=== PATIENT | female | born 1980 | race Caucasian/White ===

== ENCOUNTER 2020-11-17 10:25 | Outpatient (REF) | payer MEDICAID, SELFPAY ==
[2020-11-17 14:00] LABS: MANUAL DIFF FLAG SCAN; Monocytes Absolute Auto 0.6 X10*3/uL (0.1-1.2); SCAN SMEAR FLAG 1
[2020-11-17 14:02] LABS: Basophils Absolute Auto 0.1 X10*3/uL (0.0-0.2); Basophils Percent Auto 0.8 % (0-2); Eosinophils Absolute Auto 0.3 X10*3/uL (0.0-0.4); Eosinophils Percent Auto 5.4 % (0-4); Hemoglobin 12.7 g/dl (12.0-16.0); Imm Gran Abs Auto 0.02 X10*3/uL (0.00-0.03); Imm Gran Pct Auto 0.3 % (0.0-0.4); Lymphocytes Absolute Auto 1.7 X10*3/uL (1.2-4.9); Mean Corpuscular HGB Conc 34.3 g/dl (31.0-35.0); Mean Corpuscular Hemoglobin 30.7 pg (27.0-33.0); Mean Corpuscular Volume 89.4 fL (80-98); Mean Platelet Volume 12.9 fL (9.4-12.3); Monocytes Percent Auto 9.1 % (2-11); Neutrophils Absolute Auto 3.5 X10*3/uL (2.0-8.3); Neutrophils Percent Auto 56.4 % (45-73); Platelet Count 198 X10*3/uL (160-400); Red Blood Count 4.14 X10*6/uL (4.20-5.50); Red Cell Distribution Width 11.6 % (11.0-16.0); White Blood Count 6.2 X10*3/uL (4.8-10.8)
[2020-11-17 14:05] LABS: PLT ABN DIST 1
[2020-11-17 14:09] LABS: SLIDE REVIEW VERIFIED
[2020-11-17 14:23] LABS: Alanine Aminotransferase 15 U/L (0-31); Albumin Level 4.2 g/dL (3.5-5.0); Alkaline Phosphatase 76 U/L (39-117); Anion Gap 14 (12-20); Aspartate Amino Transferase 17 U/L (5-31); Blood Urea Nitrogen 11 mg/dL (9-16); Calcium 8.5 mg/dL (8.4-10.2); Carbon Dioxide 27 mmol/L (22-29); Chloride 104 mmol/L (96-108); Cholesterol 170 mg/dL; Estimated Glomerular Filt Rate > 60; Glucose Fasting 103 mg/dL (60-99); HDL Cholesterol 43 mg/dL; LDL Cholesterol Calculated 89 mg/dl; Potassium 3.7 mmol/L (3.3-5.1); Sodium 141 mmol/L (135-145); Total Protein 6.8 g/dL (6.5-8.0); Triglycerides 191 mg/dL
[2020-11-18 08:30] LABS: HIV AB/AG Nonreactive (Nonreactive)
== END 2020-11-17 10:26 | disposition home or self-care (01) ==
LOC: HO.10HDL 10:25
PROVIDERS: Visit Provider Internal Medicine
DX: Z00.00 Encounter for general adult medical examination without abnormal findings (principal); Z11.4 Encounter for screening for human immunodeficiency virus [HIV]; Z12.4 Encounter for screening for malignant neoplasm of cervix; Z11.51 Encounter for screening for human papillomavirus (HPV); F31.81 Bipolar II disorder
CPT/HCPCS: 36415; 80053; 80061; 85025; 87389

== ENCOUNTER 2021-08-05 16:10 | Outpatient (REF) | payer MEDICAID, SELFPAY ==
--- NOTE | ~2021-08-05 | XR_ITS ---
EXAMINATION: XR KNEE, RIGHT CLINICAL INFORMATION: Right knee pain COMPARISON: None TECHNIQUE: Four views of the right knee. FINDINGS: No fracture or subluxation. Compartmental joint spaces are maintained. No joint effusion. The soft tissues are unremarkable. XR/XR knee RT 4V IMPRESSION: Normal right knee.
== END 2021-08-05 16:11 | disposition home or self-care (01) ==
LOC: HO.LAB 16:10
PROVIDERS: Visit Provider Internal Medicine
DX: M17.11 Unilateral primary osteoarthritis, right knee (principal)
CPT/HCPCS: 73564

== ENCOUNTER 2021-12-01 13:16 | Outpatient (REF) | payer MEDICAID, SELFPAY ==
[2021-12-01 13:27] LABS: MANUAL DIFF FLAG NO
[2021-12-01 14:26] LABS: Basophils Absolute Auto 0.1 X10*3/uL (0.0-0.2); Basophils Percent Auto 0.6 % (0-2); Eosinophils Absolute Auto 0.3 X10*3/uL (0.0-0.4); Eosinophils Percent Auto 3.2 % (0-4); Hemoglobin 13.9 g/dl (12.0-16.0); Imm Gran Abs Auto 0.02 X10*3/uL (0.00-0.03); Imm Gran Pct Auto 0.2 % (0.0-0.4); Lymphocytes Absolute Auto 2.2 X10*3/uL (1.2-4.9); Lymphocytes Percent Auto 27.1 % (20-40); Mean Corpuscular HGB Conc 33.9 g/dl (31.0-35.0); Mean Corpuscular Hemoglobin 30.2 pg (27.0-33.0); Mean Corpuscular Volume 89.1 fL (80.0-98.0); Mean Platelet Volume 12.5 fL (9.4-12.3); Monocytes Absolute Auto 0.7 X10*3/uL (0.1-1.2); Monocytes Percent Auto 9.1 % (2-11); Neutrophils Absolute Auto 4.8 x10*3/uL (2.0-8.3); Neutrophils Percent Auto 59.8 % (45-73); Platelet Count 219 X10*3/uL (160-400); Red Cell Distribution Width 11.6 % (11.0-16.0)
[2021-12-01 14:56] LABS: Alanine Aminotransferase 23 U/L (0-31); Albumin Level 4.4 g/dL (3.5-5.0); Alkaline Phosphatase 102 U/L (39-117); Anion Gap 15 (12-20); Aspartate Amino Transferase 23 U/L (5-31); Bilirubin Total 0.4 mg/dL (0.0-1.0); Blood Urea Nitrogen 10 mg/dL (9-16); Calcium 8.9 mg/dL (8.4-10.2); Carbon Dioxide 27 mmol/L (22-29); Chloride 104 mmol/L (96-108); Cholesterol 199 mg/dL; Estimated Glomerular Filt Rate > 60; Glucose Random 104 mg/dL (60-115); HDL Cholesterol 38 mg/dL; LDL Cholesterol Calculated 114 mg/dl; Potassium 3.9 mmol/L (3.3-5.1); Sodium 142 mmol/L (135-145); Total Protein 7.5 g/dL (6.5-8.0); Triglycerides 239 mg/dL
[2021-12-01 15:16] LABS: Thyroid Stimulating Hormone 1.51 uIU/mL (0.32-4.0)
== END 2021-12-01 13:17 | disposition home or self-care (01) ==
LOC: HO.LAB 13:16
PROVIDERS: PCP Internal Medicine; Visit Provider Internal Medicine
DX: Z00.00 Encounter for general adult medical examination without abnormal findings (principal); F32.9 Major depressive disorder, single episode, unspecified; Z86.001 Personal history of in-situ neoplasm of cervix uteri; Z12.4 Encounter for screening for malignant neoplasm of cervix
CPT/HCPCS: 36415; 80053; 80061; 84443; 85025

== ENCOUNTER 2021-12-09 11:45 | Outpatient (REF) | payer MEDICAID, SELFPAY ==
[2021-12-09 13:43] LABS: Alanine Aminotransferase 33 U/L (0-31); Albumin Level 4.2 g/dL (3.5-5.0); Alkaline Phosphatase 93 U/L (39-117); Aspartate Amino Transferase 28 U/L (5-31); Bilirubin Direct 0.2 mg/dL (0.0-0.5); Bilirubin Total 0.5 mg/dL (0.0-1.0); C Reactive Protein 0.23 mg/dL (< or = 0.50); Iron 120 mcg/dL (30-160); Percent Iron Saturation 34 % (15-50); Total Iron Binding Capacity 349 mcg/dL (228-428); Total Protein 7.2 g/dL (6.5-8.0); Unsaturated Iron Binding 229 ug/dL
[2021-12-09 13:53] LABS: TSH reflex Free T4 0.77 uIU/mL (0.32-4.0); Vitamin D 25-OH Total 20.5 ng/mL (>30)
[2021-12-09 14:20] LABS: Folate 9.8 ng/mL (> or = 4.0); Vitamin B12 339 pg/mL (200-900)
[2021-12-11 20:27] LABS: Immunoglobulin A 453 mg/dL (47-310)
[2021-12-13 21:56] LABS: Transglutaminase IgA <1.0 U/mL
== END 2021-12-09 11:46 | disposition home or self-care (01) ==
LOC: HO.LAB 11:45
PROVIDERS: PCP Internal Medicine; Visit Provider Internal Medicine
DX: R63.4 Abnormal weight loss (principal); R15.2 Fecal urgency; R19.8 Other specified symptoms and signs involving the digestive system and abdomen; K52.9 Noninfective gastroenteritis and colitis, unspecified; R12 Heartburn
CPT/HCPCS: 36415; 80076; 82306; 82607; 82746; 82784; 83540; 83993; 84443; 86140; 86364; 87338; 87507; 99202

== ENCOUNTER 2021-12-09 17:25 | Outpatient (REF) | payer MEDICAID, SELFPAY ==
[2021-12-10 11:45] LABS: Adenovirus F 40/41 Not Detected (Not Detect.); Astrovirus Not Detected (Not Detect.); Campylobacter Not Detected (Not Detect.); Cryptosporidium Not Detected (Not Detect.); Cyclospora cayetanensis Not Detected (Not Detect.); E. coli EAEC Not Detected (Not Detect.); E. coli EPEC Not Detected (Not Detect.); E. coli ETEC Not Detected (Not Detect.); E. coli STEC Not Detected (Not Detect.); Entamoeba histolytica Not Detected (Not Detect.); Giardia lamblia Not Detected (Not Detect.); Norovirus GI/GII Not Detected (Not Detect.); Plesiomonas shigelloides Not Detected (Not Detect.); Rotavirus A Not Detected (Not Detect.); Salmonella Not Detected (Not Detect.); Shigella sp./EIEC Not Detected (Not Detect.); Vibrio Not Detected (Not Detect.); Vibrio Cholerae Not Detected (Not Detect.); Yersinia enterocolitica Not Detected (Not Detect.)
[2021-12-10 11:46] LABS: Sapovirus Not Detected (Not Detect.)
[2021-12-17 21:12] LABS: Calprotectin, Fecal 17 mcg/g
== END 2021-12-09 17:26 | disposition home or self-care (01) ==
LOC: HO.LNP 17:25
PROVIDERS: Visit Provider Internal Medicine
DX: K52.9 Noninfective gastroenteritis and colitis, unspecified (principal)
CPT/HCPCS: 83993; 87338; 87507

== ENCOUNTER → 2022-01-19 09:47 | Outpatient (BNVA) | payer MEDICAID, SELFPAY | PROVIDERS: PCP Internal Medicine; Visit Provider Internal Medicine | DX: K52.9 Noninfective gastroenteritis and colitis, unspecified (principal); K21.9 Gastro-esophageal reflux disease without esophagitis; R12 Heartburn | CPT/HCPCS: 99212 ==

== ENCOUNTER 2022-02-10 10:05 | Day surgery (SDC) | payer MEDICAID, SELFPAY ==
[2022-02-04 13:05] VITALS: BMI 27.6
--- NOTE | 2022-02-09 10:51 | HO.ANESPROP2 ---
Documented by User: Karissa Gallegos NP 02/09/22 10:51 HPI - Anesthesia Eval Consult details Narrative: 41yo F for Upper Endoscopy and Colonoscopy PMFSH Active Problems Active Problems: All Active Problems (Updated 01/19/22 @ 10:14 by Emily Choudhury MD) Acid reflux (Acute) Tenesmus (rectal) (Acute) Fecal urgency (Acute) Weight loss (Acute) Chronic heartburn (Acute) Chronic diarrhea (Acute) Past Medical History Medical History Acid reflux Anemia Asthma Surgical History Surgical History Hx of abdominal surgery Hx of esophagogastroduodenoscopy Social History Social History Household Members: Family Alcohol intake: current Patient Tobacco Use Status: Never used Tobacco Use of substances other than those prescribed or required for medical reasons: No Are you DNR?: No Advance Directives: No Advance Directives Information Provided: Yes Meds Allergies Allergy/AdvReac Type Severity Reaction Status Date / Time No Known Allergies Allergy Verified 02/10/22 11:00 antibiotic not sure of name Allergy Unknown Unknown Uncoded 02/10/22 11:00 Home Medications Medication Instructions Recorded Confirmed Last Taken Type Advair Diskus inhalation BID PRN Shortness Of 02/10/22 Unknown History Breath Or Wheezing albuterol sulfate 90 mcg/actuation 2 puff inhalation Q4-6H PRN 02/10/22 02/10/22 Unknown History aerosol inhaler (ProAir HFA) Shortness Of Breath Or Wheezing esomeprazole magnesium 20 mg 1 tab PO DAILY 02/10/22 02/10/22 Unknown History capsule,delayed release Exam Exam Date and Time: February 09, 2022 1051 Height,Weight and Vital Signs: Height 5 ft 5 in Weight 75.296 kg Assessment and Plan Assessment Anesthesia Assessment: Chart Reviewed Documented by User: Deandra Macias MD 02/10/22 11:15 [facility] Past Medical History Medical History Acid reflux Anemia Asthma Functional capacity: independent ambulation Patient : No Family History Family history of problems with anesthesia: No Surgical History Surgical History Hx of abdominal surgery Hx of esophagogastroduodenoscopy History of Problems with Anesthesia: No Social History Social History Household Members: Family Alcohol intake: current Patient Tobacco Use Status: Never used Tobacco Use of substances other than those prescribed or required for medical reasons: No Are you DNR?: No Advance Directives: No Advance Directives Information Provided: Yes Meds Allergies Allergy/AdvReac Type Severity Reaction Status Date / Time No Known Allergies Allergy Verified 02/10/22 11:00 antibiotic not sure of name Allergy Unknown Unknown Uncoded 02/10/22 11:00 Home Medications Medication Instructions Recorded Confirmed Last Taken Type Advair Diskus inhalation BID PRN Shortness Of 02/10/22 Unknown History Breath Or Wheezing albuterol sulfate 90 mcg/actuation 2 puff inhalation Q4-6H PRN 02/10/22 02/10/22 Unknown History aerosol inhaler (ProAir HFA) Shortness Of Breath Or Wheezing esomeprazole magnesium 20 mg 1 tab PO DAILY 02/10/22 02/10/22 Unknown History capsule,delayed release Exam Airway Mallampati Class: II TM Dist: >3cm Neck ROM: Full Heart: RRR Lungs: CTA Assessment and Plan Final Anesthetic Review Family History of Problems with Anesthesia: No History of Problems with Anesthesia: No ASA Class: II Final Preanesthetic Review: No Changes in Pt Med Stat, Meds/Allgs Chart Reviewed, Consent Obtained/Reviewed and Anes Risks/Benef Reviewed Patient Risk: Low Procedure Risk: Low Anesthetic Plan Anesthetic Plan: MAC: Disposition: Standard PACU
[2022-02-10 10:40] VITALS: BP 133/81; PULSE 101; RESP 15; TEMP 36.3; O2SAT 98
[2022-02-10 10:48] LABS: UPreg QC Valid YES; Urine Pregnancy NEGATIVE (NEGATIVE)
[2022-02-10] MEDS: Lactated Ringers 1,000 ML 100 ML IVCONT (11:00)
--- NOTE | 2022-02-10 11:25 | MHC.SHP ---
Pre-Procedural Eval Section A Date of Service: 02/10/22 The History & Physical has been completed within 30 days and I have reviewed it.: Yes Section B Chief Complaint: Hx of UC, chronic diarrhea, nausea Allergies: Allergies Allergy/AdvReac Type Severity Reaction Status Date / Time No Known Allergies Allergy Verified 02/10/22 11:00 antibiotic not sure of name Allergy Unknown Unknown Uncoded 02/10/22 11:00 Plan Diagnosis/Plan: Unchanged I have reviewed the history and physical and performed a pertinent physical examination on my patient. No changes have occurred unless specified. Time Spent With Patient Time: Total time managing care of this patient today ____ minutes.
--- NOTE | 2022-02-10 11:32 | P.OP_ITS ---
Operative Note Operative Note Date of Service: 02/10/22 Narrative: Procedure: Esophagogastroduodenoscopy and ileocolonoscopy Endoscopist: Emily Choudhury MD Indication: ? UC, chronic diarrhea, GERD Anesthesia Provider: Radha Tan CRNA Anesthesia Type: MAC Instrument: Olympus GIF-H190 and PCF-190 ?? EGD Procedure:?? The procedure, indications, preparation and potential complications were reviewed with the patient, who indicated understanding and gave written informed consent to proceed. A physical exam was performed. The endoscope was introduced through the mouth, and advanced to the second part of duodenum. The mucosa was carefully examined on slow withdrawal of the endoscope. The patient tolerated the procedure well. There were no immediate complications.? ? EGD Findings:? * Esophagus:? The Z line was at 35 cm. A bilobed nodule of size 15 mm with overlying villous mucosal changes was noted at the GE junction. Cold forceps biopsies were taken from the nodule. * Stomach:? Small erosions were noted in the stomach. Random cold forceps gastric biopsies were taken to rule out H Pylori infection. * Duodenum:? Normal mucosa was noted in the whole of the examined duodenum. Cold forceps biopsies were taken from duodenal bulb and second portion of the duodenum to rule out celiac sprue. Colonoscopy Procedure: The patient was then turned for the colonoscopy. A digital rectal exam was performed which was normal. The colonoscope was then inserted through the anus and advanced through the colon to the cecum at 80 cm,and terminal ileum. Appendiceal orifice and ileocecal valve were identified. Mucosa was carefully examined under high definition white light as the instrument was slowly withdrawn in a retrograde panoramic fashion. Retroflexion was performed in rectum. The procedure was not difficult. There were no immediate obvious complications. The quality of the prep was BBPS: 3+2+3 = adequate Withdrawal time 23 minutes. Limitations: No limitations. Colonoscopy Findings: Mucosa: * Small scattered scars were noted in the distal rectum ? from previous biopsy. Otherwise mucosa was normal to cecum and terminal ileum. Cold forceps biopsies were obtained from cecum, ascending colon, transverse colon, descending colon, sigmoid colon and rectum. Protruding lesions: * 1 pedunculated polyp of size 8 mm in cecum. Hot snare polypectomy was performed. The polyp was completely removed and retrieved. * Medium internal hemorrhoids without stigmata of recent bleeding. Excavated lesions: * Few small mouthed diverticula noted in ascending colon. Impressions:? * GEJ nodule (biopsy) * Gastritis (biopsy) * Normal duodenum (biopsy) * Normal colon and terminal ileum mucosa. (Biopsy) * Total of 1 polyp removed from cecum * Mild diverticulosis * Internal hemorrhoids Recommendations:?? * Follow biopsy results. Our office will call or send a letter with results within 7-10 days. * Start/continue PPI therapy. * Depending on path from esophageal nodule, may need EMR. * If H pylori +, patient will be prescribed eradication therapy followed by test of cure. * Avoid NSAIDs. * Repeat colonoscopy contingent on path results. Above has been reviewed with the patient. Relevant educational hand outs were provided at discharge.
[2022-02-10 12:48] VITALS: BP 117/86; PULSE 84; RESP 16; TEMP 36.1; O2SAT 99
[2022-02-10 13:03] VITALS: BP 123/88; PULSE 91; RESP 18; O2SAT 99
[2022-02-10] MEDS: Ondansetron ODT 4 MG TAB.RAPDIS TRANSLINGU (13:07)
[2022-02-10 13:18] VITALS: BP 128/89; PULSE 70; RESP 16; TEMP 36.1; O2SAT 100
[2022-02-10 13:33] VITALS: BP 147/48; PULSE 70; RESP 16; TEMP 36.1; O2SAT 100
[2022-02-10 13:48] VITALS: BP 125/83; PULSE 78; RESP 12; TEMP 36.2; O2SAT 99
== END 2022-02-10 14:53 | disposition home or self-care (01) ==
PROVIDERS: Nurse Practitioner; PCP Internal Medicine; Visit Provider Internal Medicine
PROC: (CPT 45385; principal; 2022-02-10 12:10)
DX: K52.9 Noninfective gastroenteritis and colitis, unspecified (principal); D12.2 Benign neoplasm of ascending colon; K57.30 Diverticulosis of large intestine without perforation or abscess without bleeding; K64.8 Other hemorrhoids; K29.50 Unspecified chronic gastritis without bleeding; K21.9 Gastro-esophageal reflux disease without esophagitis; D13.0 Benign neoplasm of esophagus; Z87.19 Personal history of other diseases of the digestive system; Z79.899 Other long term (current) drug therapy
CPT/HCPCS: 45385; 45380; 43239; 81025; 88305; 88342; J2370

== ENCOUNTER → 2022-02-23 09:50 | Outpatient (BNVA) | payer MEDICAID, SELFPAY | PROVIDERS: PCP Internal Medicine; Referring Provider Internal Medicine; Visit Provider Internal Medicine | DX: K52.9 Noninfective gastroenteritis and colitis, unspecified (principal); D36.9 Benign neoplasm, unspecified site; R12 Heartburn | CPT/HCPCS: 99212 ==

== ENCOUNTER 2022-04-07 09:27 | Outpatient (REF) | payer MEDICAID, SELFPAY ==
--- NOTE | ~2022-04-07 | FL_ITS ---
EXAMINATION: FL BARIUM SWALLOW CLINICAL INFORMATION: K21.9 - Gastro-esophageal reflux disease without esophagitis COMPARISON: Upper GI series 09/24/2012 TECHNIQUE: Barium swallow examination is performed on 04/07/[address] Perales. Radiologist is away and unable to provide report. Submitted images are reviewed. Addendum requested for any additional fluoroscopic evaluation findings. The patient is imaged both upright and prone and using both thick and thin barium sulfate along with effervescent granules. Fluoroscopy time: 1.2 minutes DAP: 8.677 Gycm2 Images: 52 FINDINGS: There is no aspiration. The cervical esophagus shows no web or diverticulum or stricture. The cervical thoracic junction appears normal. The thoracic esophagus shows no obstruction, stricture, or ulceration. There is no obvious hiatal hernia or reflux seen. A cursory view of the upper abdomen shows no gastric outlet obstruction. FL/FL barium swallow IMPRESSION: -Review of the barium swallow images demonstrates no focal abnormality. -Addendum request submitted for the performing radiologist for any additional fluoroscopic evaluation findings.
== END 2022-04-07 09:28 | disposition home or self-care (01) ==
LOC: HO.XRAY 09:27
PROVIDERS: Visit Provider Internal Medicine
DX: K21.9 Gastro-esophageal reflux disease without esophagitis (principal)
CPT/HCPCS: 74220

== ENCOUNTER 2022-04-28 07:41 | Day surgery (SDC) | payer MEDICAID, SELFPAY ==
--- NOTE | 2022-04-27 11:58 | HO.ANESPROP2 ---
Documented by User: Karissa Gallegos NP 04/27/22 11:59 HPI - Anesthesia Eval Consult details Narrative: 41yo F for Upper Endoscopy PMFSH Active Problems Active Problems: All Active Problems (Updated 02/23/22 @ 12:08 by Emily Choudhury MD) Tubulovillous adenoma (Acute) Chronic diarrhea (Acute) Chronic heartburn (Acute) Weight loss (Acute) Fecal urgency (Acute) Tenesmus (rectal) (Acute) Acid reflux (Acute) Past Medical History Medical History Acid reflux Anemia Asthma Tubal ligation evaluation Family History Family history of problems with anesthesia: No Surgical History Surgical History H/O colonoscopy Hx of abdominal surgery Hx of esophagogastroduodenoscopy History of Problems with Anesthesia: No Social History Social History Household Members: Family Alcohol intake: current Alcohol intake frequency: a few times a month Patient Tobacco Use Status: Never used Tobacco Use of substances other than those prescribed or required for medical reasons: No Are you DNR?: No Advance Directives: No Advance Directives Information Provided: Yes Meds Allergies Allergy/AdvReac Type Severity Reaction Status Date / Time No Known Allergies Allergy Verified 02/23/22 10:05 antibiotic not sure of name Allergy Intermediate Rash Uncoded 04/28/22 07:48 Home Medications Medication Instructions Recorded Confirmed Last Taken Type Advair Diskus 1 puff inhalation BID PRN 02/10/22 04/28/22 Unknown History Shortness Of Breath Or Wheezing albuterol sulfate 90 mcg/actuation 2 puff inhalation Q4-6H PRN 02/10/22 04/28/22 Unknown History aerosol inhaler (ProAir HFA) Shortness Of Breath Or Wheezing propranolol 60 mg capsule,24 60 mg PO DAILY 02/23/22 04/28/22 04/27/22 History hr,extended release sertraline 50 mg tablet 50 mg PO QAM 02/23/22 04/28/22 Unknown History triamcinolone acetonide 0.5 % 1 appl topical BID 02/23/22 04/28/22 Unknown History topical ointment Exam Exam Date and Time: April 27, 2022 1158 Pertinent Lab Results Pertinent Lab Results: Laboratory Tests 12/01/21 12/01/21 13:25 13:25 WBC 8.0 Hgb 13.9 Hct 41.0 Plt Count 219 Sodium 142 Potassium 3.9 Chloride 104 Carbon Dioxide 27 BUN 10 Creatinine 0.95 Assessment and Plan Assessment Anesthesia Assessment: Chart Reviewed Final Anesthetic Review Family History of Problems with Anesthesia: No History of Problems with Anesthesia: No Documented by User: Deandra Macias MD 04/28/22 08:54 PMFSH Past Medical History Medical History Acid reflux Anemia Asthma Tubal ligation evaluation Functional capacity: independent ambulation Patient : No Surgical History Surgical History H/O colonoscopy Hx of abdominal surgery Hx of esophagogastroduodenoscopy Social History Social History Household Members: Family Alcohol intake: current Alcohol intake frequency: a few times a month Patient Tobacco Use Status: Never used Tobacco Use of substances other than those prescribed or required for medical reasons: No Are you DNR?: No Advance Directives: No Advance Directives Information Provided: Yes Meds Allergies Allergy/AdvReac Type Severity Reaction Status Date / Time No Known Allergies Allergy Verified 02/23/22 10:05 antibiotic not sure of name Allergy Intermediate Rash Uncoded 04/28/22 07:48 Home Medications Medication Instructions Recorded Confirmed Last Taken Type Advair Diskus 1 puff inhalation BID PRN 02/10/22 04/28/22 Unknown History Shortness Of Breath Or Wheezing albuterol sulfate 90 mcg/actuation 2 puff inhalation Q4-6H PRN 02/10/22 04/28/22 Unknown History aerosol inhaler (ProAir HFA) Shortness Of Breath Or Wheezing propranolol 60 mg capsule,24 60 mg PO DAILY 02/23/22 04/28/22 04/27/22 History hr,extended release sertraline 50 mg tablet 50 mg PO QAM 02/23/22 04/28/22 Unknown History triamcinolone acetonide 0.5 % 1 appl topical BID 02/23/22 04/28/22 Unknown History topical ointment Exam Airway Mallampati Class: II TM Dist: >3cm Neck ROM: Full Heart: RRR Lungs: CTA Assessment and Plan Final Anesthetic Review ASA Class: II Final Preanesthetic Review: No Changes in Pt Med Stat, Meds/Allgs Chart Reviewed, Consent Obtained/Reviewed and Anes Risks/Benef Reviewed Patient Risk: Low Procedure Risk: Low Anesthetic Plan Anesthetic Plan: MAC: Disposition: Standard PACU
[2022-04-28 08:00] VITALS: BP 119/83; PULSE 84; RESP 16; TEMP 36.3; O2SAT 97; BMI 26.9
[2022-04-28] MEDS: Lactated Ringers 1,000 ML 100 ML IVCONT (08:13)
--- NOTE | 2022-04-28 08:38 | MHC.SHP ---
Pre-Procedural Eval Section A Date of Service: 04/28/22 Section B Chief Complaint: Esophagitis Details of Present Illness: Medical History Acid reflux Anemia Asthma Surgical History H/O colonoscopy Hx of abdominal surgery Hx of esophagogastroduodenoscopy Relevant Family History (Specify if Yes): No Relevant Social History: None Present Medications: see Short Stay Collaborative assessment Allergies: Allergies Allergy/AdvReac Type Severity Reaction Status Date / Time No Known Allergies Allergy Verified 02/23/22 10:05 antibiotic not sure of name Allergy Intermediate Rash Uncoded 04/28/22 07:48 Review of Systems Review of Systems Comment: Ten point ROS negative Exam Exam Comment: Gen appear: No acute distress HEENT: no icterus Chest: No overt resp distress Abd: soft, nontender, nondistended Psych: Stable affect, answering questions appropriately Neuro: A/Ox3 noted to move all extremities spontaneously Ext: no peripheral edema Plan Diagnosis/Plan: Unchanged I have reviewed the history and physical and performed a pertinent physical examination on my patient. No changes have occurred unless specified. Time Spent With Patient Time: Total time managing care of this patient today ____ minutes.
--- NOTE | 2022-04-28 08:39 | P.OP_ITS ---
Operative Note Operative Note Date of Service: 04/28/22 Narrative: Procedure: Esophagogastroduodenoscopy Endoscopist: Emily Choudhury MD Indication: Esophagitis, esophageal nodule Anesthesia Provider: Dr Deandra Santiago Anesthesia Type: MAC Instrument: Olympus GIF-H190 ?? EGD Procedure:?? The procedure, indications, preparation and potential complications were reviewed with the patient, who indicated understanding and gave written informed consent to proceed. A physical exam was performed. The endoscope was introduced through the mouth, and advanced to the second part of duodenum. The mucosa was carefully examined on slow withdrawal of the endoscope. The patient tolerated the procedure well. There were no immediate complications.? ? EGD Findings:? * Esophagus:? The Z line was at 38. [place] colored mucosa was noted to extend up to 37 cm in a circumferential manner. Similar to before 2 small nodules with overlying edema and villous changes were noted just at the GEJ at 38 cm. GEJ cold forceps biopsies were obtained. A small hiatal hernia was noted. * Stomach:? Normal mucosa was noted in the stomach. Retroflexion in the cardia confirmed size and morphology of the hiatal hernia consistent with Hill grade III. * Duodenum:? Normal mucosa was noted in the whole of the examined duodenum. Additional intervention: A WATS-3D kit was used to obtain further sampling of the SCM as well as the GEJ nodules. ? EGD Impressions:? * Irregular Z line and GEJ nodules (biopsy) (WATS-3D) * Hiatal hernia * Normal stomach * Normal duodenum ?? Recommendations:?? * Follow biopsy and WATS results. * Continue PPI therapy. * Avoid NSAIDs. Above has been reviewed with the patient. Relevant educational hand outs were provided at discharge.
[2022-04-28 09:45] VITALS: BP 104/56; PULSE 91; RESP 16; TEMP 36.1; O2SAT 94
[2022-04-28 10:00] VITALS: BP 129/92; PULSE 84; RESP 16; TEMP 36.1; O2SAT 97
--- NOTE | 2022-04-28 11:04 | HO.POSTANES ---
Post Anesthesia Evaluation Post Anesthesia Evaluation Vital Signs: Vital Signs Temp Pulse Resp BP Pulse Ox O2 Del Method 04/28/22 10:00 97 F 84 16 129/92 H 97 Room Air 04/28/22 09:45 97 F 91 16 104/56 L 94 Room Air 04/28/22 08:00 97.4 F 84 16 119/83 97 Room Air Anesthesia: Monitored Mental Status: Awake Pain Control: Satisfactory Nausea/Vomiting: None Hydration: Adequate Anesthesia-Related Issues: No Anes. Related Issues
== END 2022-04-28 10:41 | disposition home or self-care (01) ==
PROVIDERS: PCP Internal Medicine; Visit Provider Internal Medicine
PROC: 0DJ08ZZ Inspection of Upper Intestinal Tract, Via Natural or Artificial Opening Endoscopic (ICD-10-PCS; CPT 43235; principal; 2022-04-28 09:10)
DX: K21.00 Gastro-esophageal reflux disease with esophagitis, without bleeding (principal); D64.9 Anemia, unspecified; K22.89 Other specified disease of esophagus; D13.0 Benign neoplasm of esophagus; J45.909 Unspecified asthma, uncomplicated; Z79.51 Long term (current) use of inhaled steroids; Z79.899 Other long term (current) drug therapy; Z88.1 Allergy status to other antibiotic agents; Z98.890 Other specified postprocedural states
CPT/HCPCS: 43239; 88305

== ENCOUNTER 2025-01-10 12:51 | Day surgery (SDC) | payer BC, OTHER, SELFPAY ==
--- OUTSIDE RECORDS SUMMARY | 2025-01-09 12:32 | XMS_ITS | Clinical Summary ---
Author Organization [facility] Address [address] [place] [address] Phone Care Team Providers Care Capital Project Engineer Name Role Phone Gayatri Dutton MD Primary Care Provider [phone] Allergies No known active allergies Medical History Medical History Date Comments Asthma Social History Tobacco Use Types Packs/Day Years Used Date Smoking Tobacco: Never Smokeless Tobacco: Never Tobacco Cessation:Counseling Given: Not Answered Comments Unknown Sex and Gender Information Value Date Recorded Sex Assigned at Female 05/05/2024 10:52 PM EDT Legal Sex Female 8:25 AM EST Gender Identity Female 05/05/2024 10:52 PM EDT Sexual Orientation Straight 05/05/2024 10 :52 PM EDT Obstetrics History Last Filed Vital Signs Vital Sign Reading Time Taken Comments Blood Pressure 130/90 05/05/2024 9:30 PM EDT Pulse 95 05/05/2024 9:30 PM EDT Temperature 37 C (98.6 F) 05/05/2024 9:30 PM EDT Respiratory Rate 18 05/05/2024 9:30 PM EDT Oxygen Saturation 100% 05/05/2024 9:30 PM EDT Inhaled Oxygen Concentration - - Weight 72.6 kg (160 lb) 05/05/2024 7:21 PM EDT Height 165.1 cm (5' 5 ) 05/05/2024 7:21 PM EDT Body Mass Index 26.63 05/05/2024 7:21 PM EDT Plan of Treatment Health Maintenance Due Date Last Done Comments Colorectal Cancer Screening: Colonoscopy 1980 DTaP,Tdap,and Td Vaccines (1 - Tdap) 09/02/1998 Hepatitis B Vaccines (1 of 3 - 19+ 3-dose series) 09/02/1998 Cervical Cancer Screening: P ap Smear 09/02/2000 HPV Vaccines (1 - 3-dose SCD M series) 09/02/2006 HIV Screening 01/30/2022 Hepatitis C Screening 01/30/2022 Social Influencers of Health Screening 01/30/2022 Breast Cancer Screening 12/03/2022 12/03/2020 Depression Screening 02/28/2024 COVID-19 Vaccine ( - 2024-2 6 season) 2024 Influenza Vaccine (#1) 2024 RSV Immunization Adult Patie nts (1 - 1-dose 75+ series) 09/02/2054 HIB Vaccines Aged Out No longer eligi ble based on patient's age to complete this topic Hepatitis A Vaccines Aged Out No long er eligible based on patient's age to complete this topic IPV Vaccines Aged Out No longer eligi ble based on patient's age to complete this topic MMR Vaccines Aged Out No longer eligi ble based on patient's age to complete this topic Meningococcal ACWY Vaccine Aged Out N o longer eligible based on patient's age to complete this topic Meningococcal B Vaccine Aged Out No l onger eligible based on patient's age to complete this topic Pneumococcal Vaccine: Pediat rics (0 to 5 Years) and At-Risk Patients (6 to 49 Years) Aged Out No longer eligi ble based on patient's age to complete this topic RSV Immunization Patients Un benitez 20 months Aged Out No longer eligible b ased on patient's age to complete this topic Varicella Vaccines Aged Out No longer eligible based on patient's age to complete this topic Procedures Procedure Name Priority Date/Time Associated Diagnosis Comments [facility] SCREENING DIGITAL Routine 12/03/2020 11:40 AM EDT Encounter for screening mammogram for malignant neoplasm of breast from Last 3 Months or Most Recently Relevant to Health Maintenance Results * [facility] SCREENING DIGITAL (12/03/2020 11:40 AM EDT) Anatomical Region Laterality Modality Mammography 12/02/2020 12:3 1 PM EDT Narrative 12/03/2020 11:40 AM EDT [facility] Diagnostic Imaging Department [address] [place], [place] [id number] Patient: RASHMI MENDOZA /Age/Sex: 1980 - 40 - F Unit#: [id number] Location/Status: SPDIMAM/REG CLI Mnemonic/Ordering Site: [facility] Ordering Physician: CASSANDRA HUSSEIN MD [facility] Screening Digital - 12/02/20 - [id number] INDICATION: SCREENING COMPARISON: No prior studies are available for comparison. Baseline exam TECHNIQUE: CC and MLO views of the breasts were obtained, using full field digital mammography with 3D tomosynthesis views in the MLO projection. Computer aided detection with the Transonic Combustion 7.2-H was employed. FINDINGS: The breasts contain heterogeneously dense tissues, which may lower sensitivity of mammography in this patient. 4 mm partially circumscribed asymmetry within the medial aspect of the deep central left breast. There is no evidence of suspicious mass on the right. No suspicious microcalcifications or areas of architectural distortion are identified within either breast. There are no secondary signs of breast malignancy. IMPRESSION: 4 mm asymmetry within the medial aspect of the left breast. Further evaluation with targeted spot compression and CC tomography in the CC projection is recommended No specific mammographic evidence of breast malignancy on the right. Lack of an imaging correlate should not deter or delay biopsy of a clinically significant palpable finding. BI-RADS - Category 0 - Incomplete needs additional imaging evaluation. 3340F, 7008F ([id number] / [id number]) , [id number] Dictating Physician: DANIEL ARTHUR MD Electronically Signed by: DANIEL ARTHUR MD Dic Date/Time: 12/03/20 1136 Sign date/Time: 12/03/20 1140 Procedure Note Daniel Arthur MD - 02/16/2022 [facility] Diagnostic Imaging Department [address] [place] [id number] Patient: REJIRASHMI /Age/Sex: 1980 - 40 - F Unit#: [id number] Location/Status: [facility] CLI Mnemonic/Ordering Site: [facility] Ordering Physician: CASSANDRA HUSSEIN MD [facility] Screening Digital - 12/02/20 - 1971 INDICATION: SCREENING COMPARISON: No prior studies are available for comparison. Baselineexam TECHNIQUE: CC and MLO views of the breasts were obtained, using full field digital mammography with 3D tomosynthesis views in the MLO projection. Computer aided detection with the Transonic Combustion 7.2-H was employed. FINDINGS: The breasts contain heterogeneously dense tissues, which may lowersensitivity of mammography in this patient. 4 mm partially circumscribed asymmetry within the medial aspect of thedeep central left breast. There is no evidence of suspicious mass on theright. No suspicious microcalcifications or areas of architectural distortionare identified within either breast. There are no secondary signs of breast malignancy. IMPRESSION: 4 mm asymmetry within the medial aspect of the left breast. Further evaluation with targeted spot compression and CC tomography in theCC projection is recommended No specific mammographic evidence of breast malignancy on the right. Lack of an imaging correlate should not deter or delay biopsy of aclinically significant palpable finding. BI-RADS - Category 0 - Incomplete needs additional imaging evaluation.[id number], 7025F ([id number] / [id number]) , [id number] Dictating Physician: DANIEL RATHUR MD Electronically Signed by: DANIEL ARTHUR MD Dic Date/Time: 12/03/20 1136 Sign date/Time: 12/03/20 1140 Cassandra Hussein MD IMG BI PROCEDURES Final Resul t from Last 3 Months or Most Recently Relevant to Health Maintenance [place] [address] [address] [place] [address] (ON LICENSE OF [facility]) Care Teams Capital Project Engineer Relationship Specialty Start Date End Date Gayatri Dutton MD [address] [place] [address] PCP - General Internal Medicine 05/05/24
[2025-01-10 13:55] VITALS: BMI 27.5
[2025-01-10 14:20] VITALS: BP 140/81; PULSE 98; RESP 16; TEMP 36.6; O2SAT 99
--- NOTE | 2025-01-10 14:31 | HO.ANESPROP2 ---
[facility] Active Problems Active Problems: All Active Problems (Updated 05/07/22 @ 19:19 by Emily Choudhury MD) Esophagitis (Acute) Tubulovillous adenoma (Acute) Tenesmus (rectal) (Acute) Fecal urgency (Acute) Weight loss (Acute) Chronic heartburn (Acute) Chronic diarrhea (Acute) Acid reflux (Acute) Past Medical History Medical History Tubal ligation evaluation Anemia Asthma Acid reflux Family History Family history of problems with anesthesia: No Surgical History Surgical History H/O tubal ligation H/O colonoscopy (02/10/22) Hx of esophagogastroduodenoscopy (04/28/22) Hx of abdominal surgery History of Problems with Anesthesia: No Social History Social History Household Members: Family Alcohol intake: current Alcohol intake frequency: holidays/special occasions only Patient Tobacco Use Status: Never used Tobacco Use of substances other than those prescribed or required for medical reasons: No Are you DNR?: No Advance Directives: No Advance Directives Information Provided: Yes Patient : No Meds Allergies Allergy/AdvReac Type Severity Reaction Status Date / Time No Known Allergies Allergy Verified 02/23/22 10:05 antibiotic not sure of name Allergy Intermediate Rash Uncoded 04/28/22 07:48 Active Medications: Current Medications Lactated Ringer's (Lr) 1,000 mls @ 80 mls/hr IVCONT .[id number] [facility] Home Medications ?Medication ?Instructions ?Recorded ?Confirmed ?Last Taken ?Type Advair Diskus 1 puff inhalation BID PRN 02/10/22 04/28/22 Unknown History Shortness Of Breath Or Wheezing albuterol sulfate 90 mcg/actuation 2 puff inhalation Q4-6H PRN 02/10/22 04/28/22 Unknown History aerosol inhaler (ProAir HFA) Shortness Of Breath Or Wheezing propranolol 60 mg capsule,24 60 mg PO DAILY 02/23/22 04/28/22 04/27/22 History hr,extended release sertraline 50 mg tablet 50 mg PO QAM 02/23/22 04/28/22 Unknown History triamcinolone acetonide 0.5 % 1 appl topical BID 02/23/22 04/28/22 Unknown History topical ointment Exam Height,Weight and Vital Signs: Height 5 ft 5 in Weight 75 kg Last Vital Signs Temp 97.8 F 01/10/25 14:20 Pulse 98 01/10/25 14:20 Resp 16 01/10/25 14:20 BP 140/81 H 01/10/25 14:20 Pulse Ox 99 01/10/25 14:20 O2 Del Method Room Air 01/10/25 14:20 Airway Mallampati Class: II TM Dist: >3cm Neck ROM: Full Loose/Missing/Broken Teeth: No Heart: RRR Lungs: CTA Assessment and Plan Assessment Anesthesia Assessment: Anesthesia Plan Discussed and Chart Reviewed Final Anesthetic Review Family History of Problems with Anesthesia: No History of Problems with Anesthesia: No ASA Class: II Final Preanesthetic Review: Meds/Allgs Chart Reviewed, Consent Obtained/Reviewed and Anes Risks/Benef Reviewed Patient Risk: Low Procedure Risk: Low Anesthetic Plan Anesthetic Plan: MAC: Disposition: Standard PACU
[2025-01-10] MEDS: Lactated Ringers 1,000 ML 80 ML IVCONT (14:33)
--- NOTE | 2025-01-10 14:37 | MHC.SHP ---
Pre-Procedural Eval Section A - 24 Hr Update-Section A only Date of Service: 01/10/25 Section B - Complete if H&P > 30 days Chief Complaint: Personal history of colon polyps, unspecified Details of Present Illness: Medical History Acid reflux Anemia Asthma Surgical History H/O colonoscopy Hx of abdominal surgery Hx of esophagogastroduodenoscopy Relevant Family History (Specify if Yes): No Relevant Social History: None Present Medications: see Short Stay Collaborative assessment Allergies: Allergies Allergy/AdvReac Type Severity Reaction Status Date / Time No Known Allergies Allergy Verified 02/23/22 10:05 antibiotic not sure of name Allergy Intermediate Rash Uncoded 04/28/22 07:48 Review of Systems Review of Systems Comment: Ten point ROS negative Exam Exam Comment: Gen appear: No acute distress HEENT: no icterus Chest: No overt resp distress Abd: soft, nontender, nondistended Psych: Stable affect, answering questions appropriately Neuro: A/Ox3 noted to move all extremities spontaneously Ext: no peripheral edema Plan Diagnosis/Plan: Unchanged I have reviewed the history and physical and performed a pertinent physical examination on my patient. No changes have occurred unless specified. Time Spent With Patient Time: Total time managing care of this patient today ____ minutes.
--- NOTE | 2025-01-10 16:11 | P.OPN-COLO_ITS ---
Colonoscopy Operative Note Operative Note Date of Service: 01/10/25 Narrative: Procedure: Colonoscopy Indication: Personal hx of polyps Endoscopist: Emily Choudhury MD Anesthesia Provider: Eri Ball DO Anesthesia type: MAC Instrument: Olympus [id number]-[id number] Consent: Indication, risks vs benefits, and alternatives were discussed with the patient who gave written informed consent to proceed. EKG, pulse, pulse oximetry and blood pressure were monitored throughout the procedure. Please see anesthesia flowsheet. Procedure: The patient was brought to the procedure room and placed in the left lateral decubitus position. IV medications were administered by the anesthesia provider in attendance. A digital rectal exam was performed which was normal. A distal attachment cap was affixed to the tip of the colonoscope which was then inserted through the anus and advanced through the colon to the cecum at 75 cm,and terminal ileum. Appendiceal orifice and ileocecal valve were identified. Mucosa was carefully examined under high definition white light as the instrument was slowly withdrawn in a retrograde panoramic fashion. Retroflexion was performed in rectum. The procedure was not difficult. There were no immediate obvious complications. The quality of the prep was BBPS: 3+3+3 = adequate Withdrawal time 6 minutes. Limitations: No limitations. Findings: Mucosa: Normal to cecum and terminal ileum. Protruding lesions: * Medium internal hemorrhoids without stigmata of recent bleeding. Excavated lesions: * Few diverticula in ascending colon. Impression: 1. Normal colon mucosa 2. Diverticulosis 3. Internal hemorrhoids Recommendations: - Repeat colonoscopy for asymptomatic colorectal ca screening in 10 years.
[2025-01-10 16:22] VITALS: BP 108/66; PULSE 90; RESP 20; TEMP 36.8; O2SAT 99
[2025-01-10 16:37] VITALS: BP 119/82; PULSE 81; RESP 17; O2SAT 99
[2025-01-10 16:49] VITALS: BP 122/80; PULSE 71; RESP 13; TEMP 37; O2SAT 100
== END 2025-01-10 16:55 | disposition home or self-care (01) ==
PROVIDERS: PCP Internal Medicine; Visit Provider Internal Medicine
PROC: 0DJD8ZZ Inspection of Lower Intestinal Tract, Via Natural or Artificial Opening Endoscopic (ICD-10-PCS; CPT 45378; principal; 2025-01-10 14:50)
DX: Z12.11 Encounter for screening for malignant neoplasm of colon (principal); Z86.0101 Personal history of adenomatous and serrated colon polyps; K57.30 Diverticulosis of large intestine without perforation or abscess without bleeding; K64.8 Other hemorrhoids; K21.9 Gastro-esophageal reflux disease without esophagitis; D64.9 Anemia, unspecified; J45.909 Unspecified asthma, uncomplicated; Z79.899 Other long term (current) drug therapy; Z88.1 Allergy status to other antibiotic agents; Z98.890 Other specified postprocedural states
CPT/HCPCS: 45378; J2003; J2704

== ENCOUNTER → 2025-01-10 12:51 | Outpatient (BNV) | payer BC, SELFPAY | PROVIDERS: PCP Internal Medicine; Visit Provider Internal Medicine | DX: Z12.11 Encounter for screening for malignant neoplasm of colon (principal); K57.30 Diverticulosis of large intestine without perforation or abscess without bleeding; K64.8 Other hemorrhoids | CPT/HCPCS: 45378 ==